=== PATIENT | female | born 1970 | race Hispanic/Latino ===

== ENCOUNTER → 2019-12-04 | Outpatient (CLI) | payer BC, OTHER ==
[~2019-12-04] MED LIST: FLEXERIL10 MG PO; RELPAX40 MG PO; XYZAL5 MG PO; Z.0.BENTYL10 MG PO; Z.0.PROTONIX40 MG PO; [UNRECOGNIZED DRUG - CODE]; [UNRECOGNIZED DRUG - OTHER] INJ
== END ==
LOC: LAB 05:00 → EDSTATUS 12-09 11:30
PROVIDERS: ATTEND Internal Medicine Gastroenterology
DX: U07.1 COVID-19 (principal); Z01.818 Encounter for other preprocedural examination; K20.9 Esophagitis, unspecified; R10.10 Upper abdominal pain, unspecified; R11.0 Nausea; Z53.8 Procedure and treatment not carried out for other reasons
CPT/HCPCS: U0002

== ENCOUNTER → 2020-01-03 | Day surgery (SDC) | payer BC, OTHER ==
[~2020-01-03] MED LIST changes: +FENTANYL CITRATE/PF 100MCG/2 ML INJ ONE; +LIDOCAINE HCL 2% LOCAL INJ 5 ML SDV VIAL INJ ONE; +MIDAZOLAM HCL 2 MG/2 ML VIAL ONE; +PROPOFOL IV EMULSION 10 MG/ML 20 ML VIAL ONE
--- NOTE | 2020-01-03 07:20 | NUR ---
SPIRITUAL CARE - Pre-Surgery Assessment: Pt in bed. Pt's at bedside. Pt reported supportive attention from family and friends. Intervention: [place] provided pastoral presence, hospitality, prayer, and sympathetic listening. Acquainted pt with availability of neuro urologist while hospitalized. Outcome: Pt expressed appreciation for visit. No need for follow up indicated at this time. [facility] Spiritual Care Department O: [phone]
[2020-01-03 08:35] VITALS: BP 132/87
--- NOTE | 2020-01-03 10:02 | Operative Report ---
DATE OF PROCEDURE: 01/03/2020 SURGEON: Steve Travis MD PROCEDURE: EGD with biopsies and esophageal dilatation. INDICATIONS FOR EGD: Upper abdominal pain, bloating, nausea, dysphagia. MEDICATIONS: The patient was done under MAC, please see anesthesiologist's note. PROCEDURE IN DETAIL: With the patient in the left lateral decubitus position, a flexible fiberoptic Olympus gastroscope was introduced into the esophagus under direct visualization without any difficulty. There was some patchy erythema noted in distal esophagus. The esophagus was dilated to size 52-[place]ano. The scope was then advanced with ease into the stomach. Mucosa overlying the antrum and the body revealed some patchy intense erythema and low-grade to moderate edema, and biopsies were obtained and sent to stain for H. pylori. Pylorus was of normal contour and shape, was intubated with ease and the scope was advanced all the way to the second portion of the duodenum. Biopsies were obtained from the proximal second portion and the duodenal bulb to rule out sprue. The scope was then withdrawn back into the stomach and retroflexed, and some focal varicosities were noted in the fundus without active bleeding or stigmata of recent hemorrhage. The cardia appeared to be within normal limits. The scope was then straightened out, it was subsequently withdrawn, and the patient tolerated the procedure well. IMPRESSION: 1. Distal esophagitis, mild. 2. Esophagus dilated to size 52-Arabic Castano. 3. Gastritis, biopsied, biopsies sent to stain for Helicobacter pylori. 4. Focal varicosities, fundus of stomach. 5. Rule out sprue. PLAN: Follow up histology. Continue Dexilant 60 mg one p.o. q.a.m. before meals and Carafate 1 g p.o. before meals t.i.d. and at bedtime. The patient will need a CT scan of the abdomen. Steve Travis MD [facility] [place]/[facility] /[id number] cc: Drarian Stafford MD
== END | disposition home or self-care (01) ==
LOC: OR 06:18
PROVIDERS: ATTEND Internal Medicine Gastroenterology
DX: K20.8 Other esophagitis (principal); K29.60 Other gastritis without bleeding; I86.4 Gastric varices; K21.9 Gastro-esophageal reflux disease without esophagitis; Z86.010 Personal history of colon polyps; G43.909 Migraine, unspecified, not intractable, without status migrainosus; E66.01 Morbid (severe) obesity due to excess calories; Z88.1 Allergy status to other antibiotic agents; Z68.41 Body mass index [BMI] 40.0-44.9, adult
CPT/HCPCS: 43239; 43450; 81025; J2001; J2250; J2704; J3010

== ENCOUNTER → 2020-01-16 | Outpatient (CLI) | payer BC, OTHER ==
[~2020-01-16] MED LIST changes: -FENTANYL CITRATE/PF 100MCG/2 ML INJ ONE; +IOPAMIDOL 370 MG/ML 200 ML INFUS..BTL INJ ONE; -LIDOCAINE HCL 2% LOCAL INJ 5 ML SDV VIAL INJ ONE; -MIDAZOLAM HCL 2 MG/2 ML VIAL ONE; -PROPOFOL IV EMULSION 10 MG/ML 20 ML VIAL ONE; +SODIUM CHLORIDE 0.9% 50ML 50 ML ONE
--- NOTE | 2020-01-16 09:23 | Diagnostic Imaging Report ---
EXAM: CT Abdomen and Pelvis WITH intravenous contrast INDICATION: Gastritis COMPARISON: None TECHNIQUE: Abdomen and pelvis were scanned utilizing a multidetector helical scanner from the lung base to the pubic symphysis after administration of IV contrast. Coronal and sagittal reformations were obtained. Routine protocol was performed. Scan was performed during portal venous phase. IV CONTRAST: 100mL of Isovue 370 ORAL CONTRAST: Water RADIATION DOSE: Total DLP: 799 mGy*cm Dose modulation, iterative reconstruction, and/or weight based adjustment of the mA/kV was utilized to reduce the radiation dose to as low as reasonably achievable. FINDINGS: LOWER THORAX: Normal. HEPATOBILIARY: Diffuse hepatic steatosis. No focal liver lesion. No biliary ductal dilation. Status post cholecystectomy. SPLEEN: No splenomegaly. Left upper quadrant vascular embolization coils. PANCREAS: No focal masses or ductal dilatation. ADRENALS: No adrenal nodules. KIDNEYS/URETERS: No hydronephrosis, stones, or solid mass lesions. PELVIC ORGANS/BLADDER: Unremarkable. PERITONEUM / RETROPERITONEUM: No free air or fluid. LYMPH NODES: No lymphadenopathy. VESSELS: Unremarkable. GI TRACT: No distention or wall thickening. Normal appendix. BONES AND SOFT TISSUES: Unremarkable. IMPRESSION: No acute findings in the abdomen or pelvis. Specifically, no stomach wall thickening or prominent upper abdominal varices. Diffuse hepatic steatosis. Signed by: Marika Kolb MD on 01/16/2020 9:19 AM
== END ==
LOC: CT 07:51
PROVIDERS: ATTEND Internal Medicine Gastroenterology
DX: I86.4 Gastric varices (principal); K29.70 Gastritis, unspecified, without bleeding
CPT/HCPCS: 74177; Q9967